=== PATIENT | female | born 1965 | race Caucasian/White ===

== ENCOUNTER 2021-04-01 15:47 | Outpatient (CLI) | payer BC, SELFPAY ==
[2021-04-01 16:02] LABS: Basophils Absolute Auto 0.05 K/mm3 (0.00-0.10); Basophils Percent Auto 0.8 % (0.0-1.0); Eosinophils Absolute Auto 0.06 K/mm3 (0.02-0.50); Eosinophils Percent Auto 0.9 % (1.0-6.0); Hematocrit 43.9 % (35.0-49.0); Hemoglobin 14.7 g/dL (12.0-15.0); Immature Granulocyte Absolute 0.01 K/mm3 (0.00-0.00); Immature Granulocyte Percent A 0.2 % (0.0-0.0); Lymphocytes Absolute Auto 1.89 K/mm3 (1.10-4.50); Lymphocytes Percent Auto 29.9 % (18.0-42.0); Mean Corpuscular HGB Conc 33.5 g/dL (32.0-36.0); Mean Corpuscular Hemoglobin 30.1 pg (27.0-31.0); Mean Corpuscular Volume 89.8 fL (78.0-102.0); Mean Platelet Volume 10.9 fl (9.2-11.8); Monocytes Absolute Auto 0.78 K/mm3 (0.10-0.90); Monocytes Percent Auto 12.3 % (2.0-11.0); Neutrophils Absolute Auto 3.5 K/mm3 (1.7-7.2); Neutrophils Percent Auto 55.9 % (50.0-70.0); Platelet Count Result 237 K/mm3 (150-420); Red Blood Count 4.89 M/mm3 (4.20-5.40); White Blood Count 6.3 K/mm3 (4.8-10.8)
[2021-04-01 16:16] LABS: D Dimer 0.29 mg/L (0.19-0.50)
[2021-04-01 16:22] LABS: Alanine Aminotransferase 51 U/L (14-59); Alkaline Phosphatase 111 U/L (46-116); Anion Gap 10 mmol/L (8-16); Aspartate Amino Transferase 21 U/L (15-37); Bilirubin,Total 0.4 mg/dL (0.00-1.00); Blood Urea Nitrogen 17 mg/dL (7-18); Calcium 9.7 mg/dL (8.5-10.1); Carbon Dioxide 33 mmol/L (21-32); Chloride 102 mmol/L (98-108); Estimated Glomerular Filt Rate > 60; Glucose 141 mg/dL (70-99); Osmolality Calculated 303 mOsm/kg (285-295); Potassium 3.7 mmol/L (3.5-5.1); Sodium 145 mmol/L (136-145); Total Protein 8.2 g/dL (6.4-8.2)
== END 2021-04-01 15:48 | disposition home or self-care (01) ==
LOC: CHSLAB 15:51
PROVIDERS: PCP Physician Assistant; Visit Provider Physician Assistant
DX: R06.00 Dyspnea, unspecified (principal)
CPT/HCPCS: 36415; 80053; 85025; 85380

== ENCOUNTER 2021-04-02 09:24 | Outpatient (CLI) | payer BC, SELFPAY ==
--- NOTE | ~2021-04-02 | XR_ITS ---
EXAMINATION: XR chest 2V DATE: 04/02/2021 09:39 INDICATION: Shortness of breath and chest pain TECHNIQUE: PA and lateral views of the chest are obtained. COMPARISON: 10/04/2018 FINDINGS: There are patchy opacities of the lung bases. There is no pleural effusion or pneumothorax. The cardiomediastinal silhouette is normal. There is moderate thoracic spondylosis. Surgical clips i n the right upper quadrant are likely from prior cholecystectomy. IMPRESSION: 1. Bibasilar airspace opacities, consistent with atelectasis versus pneumonia. Reviewed, dictated and finalized at location A. SLAGMAN
== END 2021-04-02 09:25 | disposition home or self-care (01) ==
LOC: CHSLAB 09:26
PROVIDERS: PCP Physician Assistant; Visit Provider Physician Assistant
DX: R06.00 Dyspnea, unspecified (principal)
CPT/HCPCS: 71046

== ENCOUNTER 2021-04-07 09:18 | Emergency (ER) | payer BC, SELFPAY ==
--- NOTE | ~2021-04-07 | XR_ITS ---
EXAMINATION: XR chest 1V portable 04/07/2021 10:00 INDICATION: Shortness of breath and chest pain PROCEDURE: AP portable chest COMPARISON: Comparison to multiple prior studies sequentially, with oldest reviewed study dated 06/01. FINDINGS: The lungs are clear. The cardiomediastinal silhouette is within normal limits. There are no pleural effusions. There is no pneumothorax suspected. IMPRESSION: 1: NO ACUTE CARDIOPULMONARY DISEASE. Reviewed, dictated and finalized at location A. WRITER
[2021-04-07 09:22] VITALS: BP 166/91; PULSE 95; RESP 18; TEMP 36.9; O2SAT 100
--- NOTE | 2021-04-07 09:45 | ECG_ITS ---
Measurements Intervals [place] Rate: 82 P: 6 LA: 134 QRS: 1 QRSD: 102 T: 31 QT: 372 QTc: 436 Interpretive Statements SINUS RHYTHM DELAYED PRECORDIAL R/S TRANSITION BASELINE ARTIFACT- I, II, III, AVR, AVF BORDERLINE ECG Electronically Signed On 04-07-2021 12:12:58 [employer]ONRY CONTRACTOR by Rad Echevarria D.O.
[2021-04-07 10:06] LABS: Alveolar/Arterial O2 Gradient 19.9 mmHg; Base Excess ABG 2.9 mEq/l (+/-2.0); Fractional Inspired Oxygen 21 %; HCO3 ABG 23.8 mEq/l (22.0-26.0); Oxygen Content ABG 20.6 %vol (16.0-22.0); Oxygen Saturation ABG 98.2 % (95.0-100.0); Oxyhemoglobin 96.5 % THb (90.0-100.0); PCO2 ABG 27.4 mmHg (35.0-45.0); PO2 FiO2 Ratio Arterial Blood 4.62 %; Total Hemoglobin 15.1 g/dL (12.0-18.0)
[2021-04-07 10:07] LABS: Device ROOM AIR; Modified Allen's Test Pass; Site Drawn LEFT RADIAL; pH ABG 7.557 (7.350-7.450)
[2021-04-07 10:18] LABS: Basophils Absolute Auto 0.1 K/mm3 (0.0-0.1); Basophils Percent Auto 0.6 % (0.2-1.2); Eosinophils Absolute Auto 0.2 K/mm3 (0-0.3); Eosinophils Percent Auto 1.8 % (0-4.4); Hematocrit 44.7 % (37.0-47.0); Hemoglobin 14.7 g/dL (12.0-15.0); Immature Granulocyte Absolute 0.04 K/mm3 (0.00-0.031); Immature Granulocyte Percent A 0.5 % (0-0.5); Lymphocytes Absolute Auto 3.43 K/mm3 (0.9-3.2); Lymphocytes Percent Auto 40.6 % (18.3-44.2); Mean Corpuscular HGB Conc 32.9 g/dl (32-36); Mean Corpuscular Hemoglobin 29.6 pg (26-34); Mean Corpuscular Volume 90.1 fl (80-100); Mean Platelet Volume 10.6 fl (7.4-10.4); Monocytes Absolute Auto 0.6 K/mm3 (0.1-0.6); Monocytes Percent Auto 7.2 % (2.6-8.5); Neutrophils Absolute Auto 4.2 K/mm3 (1.3-6.7); Neutrophils Percent Auto 49.3 % (45.5-73.1); Platelet Count Result 241 k/mm3 (150-375); Red Blood Count 4.96 M/mm3 (4.2-5.4); Red Cell Distribution Width 14.5 % (11.5-14.5); White Blood Count 8.5 K/mm3 (4.5-10.0)
--- NOTE | 2021-04-07 10:25 | ED.SOB ---
HPI - SOB/Dyspnea General Chief Complaint: Shortness of Breath/Dyspnea Stated Complaint: sob Time Seen by Provider: 04/07/21 09:44 Source: patient Mode of arrival: ambulatory Limitations: no limitations History of Present Illness HPI Narrative: Patient is 55 years old white female presented to the ED with central chest burning sensation, worse with coughing, shortness of breath, coughing for the last 7 days, was seen by her family physician 6 days ago, diagnosed of pneumonia, started on Z-Ariel, cephalexin, prednisone and inhaler, no improved. History of Covid infection February 18, 2020, patient is fully vaccinated for COVID-19. Patient also complaining of fever and chills. History of diabetes, hypertension, hyperlipidemia, hypothyroidism, no smoking, drinks occasionally. Related Data Allergies Allergy/AdvReac Type Severity Reaction Status Date / Time No Known Allergies Allergy Mild Unverified 01/08/08 02:41 Review of Systems Review of Systems: CONSTITUTIONAL: Denies fever, chills, or sweats. EYES: Denies visual changes, redness, or discharge. ENT: Denies rhinorrhea, congestion, sore throat, or otalgia. CARDIOVASCULAR: Denies chest pain, palpitations, or edema. RESPIRATORY: Denies cough or dyspnea. GASTROINTESTINAL: Denies abdominal pain, nausea, vomiting, or diarrhea. GENITOURINARY: Denies dysuria or hematuria. SKIN: Denies rash or itching. MUSCULOSKELETAL: Denies back pain, joint pain, or myalgia. NEUROLOGIC: Denies headache, numbness, or weakness. PSYCHIATRIC: Denies anxiety or depression. Exam Narrative: General appearance: Well-developed, well-nourished Skin: Normal color Head: Normocephalic, nontraumatic Eyes: Clear conjunctiva ENT: Oropharynx normal, ears normal, nose normal Neck: Supple, nontender Chest and respiratory: Airway patent, no respiratory distress, no accessory muscle use. Mild upper chest tenderness Heart: Regular rate/rhythm Abdomen: Soft, nontender, no organomegaly, quiet bowel sounds Vascular: Normal peripheral pulses, normal capillary refill. Musculoskeletal: Normal range of motion, nontender back Neurologic: Alert and oriented ?3, DIALYSIS TECH is normal as tested, no gross motor deficit Course Course Emergency Course: Stable Work-up did not show anything significant to explain patient condition. Hyperventilation syndrome is my concern secondary to long COVID. Patient will be discharged to follow-up with her family physician as needed, continue home medication, off work for 2 days Vital Signs Vital signs: Vital Signs Temperature 36.9 C 04/07/21 09:22 Pulse Rate 95 04/07/21 09:22 Respiratory Rate 18 04/07/21 09:22 Blood Pressure 166/91 H 04/07/21 09:22 Pulse Oximetry 100 04/07/21 09:22 Temperature 36.9 C 04/07/21 09:22 Pulse Rate 95 04/07/21 09:22 Respiratory Rate 18 04/07/21 09:22 Blood Pressure 166/91 H 04/07/21 09:22 Pulse Oximetry 100 04/07/21 09:22 MDM - SOB/Dyspnea Lab Data Result diagrams: 04/07/21 10:10 04/07/21 10:10 Labs: Lab Results 04/07/21 04/07/21 04/07/21 Range/Units 10:10 10:10 10:10 WBC 8.5 (4.5-10.0) K/mm3 RBC 4.96 (4.2-5.4) M/mm3 Hgb 14.7 (12.0-15.0) g/dL Hct 44.7 (37.0-47.0) % MCV 90.1 (80-100) fl MCH 29.6 (26-34) pg MCHC 32.9 (32-36) g/dl RDW 14.5 (11.5-14.5) % Plt Count 241 (150-375) k/mm3 MPV 10.6 H (7.4-10.4) fl Immature Gran % (Auto) 0.5 (0-0.5) % Neut % (Auto) 49.3 (45.5-73.1) % Lymph % (Auto) 40.6 (18.3-44.2) % [place] % (Auto) 7.2 (2.6-8.5) % Eos % (Auto) 1.8 (0-4.4) % Baso % (Auto) 0.6 (0.2-1.2) % Lymph # (Auto) 3.43 H (0.9-3.2) K/mm3 Mo
[2021-04-07 10:27] LABS: Lactic Acid Reflex 1.9 mmol/L (0.7-2.1); Prothrombin Time 12.9 Seconds (11.1-14.7)
[2021-04-07 10:28] LABS: Partial Thromboplastin Time 24.5 SECONDS (22.3-36.8)
[2021-04-07 10:31] LABS: Alanine Aminotransferase 57 U/L (4-35); Albumin Level 4.4 g/dL (3.5-5.1); Alkaline Phosphatase 113 U/L (38-126); Anion Gap 6 mmol/L (8-16); Aspartate Amino Transferase 37 U/L (14-36); Bilirubin,Total 0.7 mg/dL (0.2-1.3); Blood Urea Nitrogen 22 mg/dL (7-17); CRP < 0.5 mg/dL (<1.0); Calcium 8.9 mg/dL (8.4-10.2); Carbon Dioxide 32 mmol/L (22-30); Chloride 102 mmol/L (98-107); Estimated CRCL calculation 82 ml/min; Estimated Glomerular Filt Rate > 60; Glucose 86 mg/dL (65-110); Sodium 140 mmol/L (137-145)
[2021-04-07 10:38] LABS: Troponin I < 0.012 ng/mL (0.000-0.034)
[2021-04-07 11:11] LABS: D Dimer < 0.27 ug/mL (<0.48)
[2021-04-07 11:15] VITALS: BP 130/79; PULSE 82; RESP 12; O2SAT 97
[2021-04-07 11:57] VITALS: BP 134/84; PULSE 87; RESP 12; O2SAT 98
== END 2021-04-07 11:50 | disposition home or self-care (01) ==
PROVIDERS: Emergency Provider Emergency Medicine; PCP Physician Assistant
DX: F45.8 Other somatoform disorders (principal); U09.9 Post COVID-19 condition, unspecified; I10 Essential (primary) hypertension; E78.5 Hyperlipidemia, unspecified; E03.9 Hypothyroidism, unspecified; E11.9 Type 2 diabetes mellitus without complications; R94.31 Abnormal electrocardiogram [ECG] [EKG]
CPT/HCPCS: 36415; 36600; 71045; 80053; 82805; 83605; 84484; 85025; 85380; 85610; 85730; 86140; 87040; 93005; 99284

== ENCOUNTER 2023-01-26 00:56 | Day surgery (SDC) | payer BC, SELFPAY ==
[2023-01-08 10:12] VITALS: BMI 38.7
--- NOTE | 2023-01-22 10:18 | SUR.PREOP ---
Patient called regarding upcoming procedure. Message left on pt's voicemail regarding appointment times.
[2023-01-26 07:56] VITALS: BP 150/79; PULSE 76; RESP 18; TEMP 36.1; O2SAT 99
[2023-01-26] MEDS: LACTATED RINGERS 1,000 ML 150 ML IV CONT (08:06)
[2023-01-26 08:09] LABS: Glucose Point of Care 94 mg/dl (65-105)
--- NOTE | 2023-01-26 08:31 | P.PNAN_ITS ---
Anes - Initial Pre Proc Eval Procedure: Operation Date: 01/26/23 09:00 Proposed Procedures p Screening Colonoscopy - Kye Calvillo MD Date/Time: 01/26/23 08:31 Surgeon: Kye Calvillo MD Pre Op Diagnosis: neoplasm screening Patient Data Age: 57 Gender: F Height: 1.57 m Weight: 97.1 kg Last Vital Signs Temp 36.1 C L 01/26/23 07:56 Pulse 76 01/26/23 07:56 Resp 18 01/26/23 07:56 BP 150/79 H 01/26/23 07:56 Pulse Ox 99 01/26/23 07:56 O2 Del Method Room Air 01/26/23 07:56 Allergies Allergy/AdvReac Type Severity Reaction Status Date / Time No Known Allergies Allergy Mild Verified 01/26/23 07:54 Home Medications Medication Instructions Recorded Confirmed Type atorvastatin 40 mg tablet 40 mg PO DAILY 01/08/23 01/08/23 History dulaglutide 3 mg/0.5 mL 3 mg subcut WEEKLY 01/08/23 01/26/23 History subcutaneous pen injector (Trulicity) hydrochlorothiazide 25 mg tablet 25 mg PO DAILY 01/08/23 01/08/23 History ibuprofen 600 mg tablet 600 mg PO BID 01/08/23 01/08/23 History lansoprazole 15 mg capsule,delayed 15 mg PO DAILY 01/08/23 01/08/23 History release levothyroxine 125 mcg tablet 125 mcg PO DAILY 01/08/23 01/08/23 History liothyronine 5 mcg tablet 5 mcg PO DAILY 01/08/23 01/08/23 History metformin 500 mg tablet,extended 500 mg PO HS 01/08/23 01/08/23 History release 24 hr ramipril 10 mg capsule 10 mg PO DAILY 01/08/23 01/08/23 History valacyclovir 1 gram tablet 1 mg PO PRN PRN Cold Sores 01/08/23 01/08/23 History Laboratory Tests 01/26/23 08:00 POC Capillary Glucose 94 mg/dl (65-105) Patient hx anesthesia problems: none Family hx anesthesia problems: none Results Review: All pre-operative results and documents have been reviewed as part of the pre- operative evaluation. [facility] Past Medical History Medical History (Updated 01/26/23 @ 08:32 by Berto Molina MD) Diabetes HTN (hypertension) Obesity Surgical History Surgical History (Updated 01/26/23 @ 08:32 by Berto Molina MD) H/O: hysterectomy History of lumbar surgery Social History Social History Smoking status: Never smoker Alcohol intake: current Alcohol use details: rare use Substance use: never Substance use type: does not use Living arrangements: with family Spiritual care concerns: No Anes - Eval Final PreProcedure Day of Procedure 01/26/23 08:31 Patient weight: obese Heart: regular rate and rhythm Lungs: clear to auscultation Airway: Mallampati scale class II Neurological: alert and oriented Last oral intake: >/= 8 hours ASA classification: III Emergent: no Anesthetic plan: proceed Anesthesia type and monitoring: general GIVS and standard monitoring Results Review: All pre-operative results and documents have been reviewed as part of the pre- operative evaluation. Informed Consent: The patient's anesthetic plan and its attendant risks and benefits were discussed with the patient/family/POA. Questions were solicited and answers provided to the satisfaction of the patient/family/POA.
--- NOTE | 2023-01-26 08:43 | PM.HPGS ---
History of Present Illness History of Present Illness Consent: Risks, benefits, and alternatives have been discussed and questions answered. Patient agrees to proceed with procedure. Chief complaint: Family history of colon cancer Narrative: Anitha Garcia is a 57 year old female presents for colonoscopy. Patient reports that her mother had colon cancer. Patient reports that in general her bowel habits have been normal. She reports 3 weeks ago began to have mucousy stools. She did end up having bright red blood per rectum for several days. She was given a treatment of Flagyl for 5 days and noticed improvement. Bowel movements recently have returned to normal. Patient denies any ongoing abdominal pain. Her family history is today significant her mother had colon cancer. Previous colonoscopy many years ago was normal in 2008. Review of Systems Review of Systems: Review of systems noncontributory. [facility] Past Medical History Medical History (Updated 01/26/23 @ 08:44 by Kye Calvillo MD) Diabetes HTN (hypertension) Obesity Surgical History Surgical History (Updated 01/26/23 @ 08:32 by Berto Molina MD) H/O: hysterectomy History of lumbar surgery Social History Social History Smoking status: Never smoker Alcohol intake: current Alcohol use details: rare use Substance use: never Substance use type: does not use Living arrangements: with family Spiritual care concerns: No Meds Home Medications and Allergies Home Medications Medication Instructions Recorded Confirmed Type atorvastatin 40 mg tablet 40 mg PO DAILY 01/08/23 01/08/23 History dulaglutide 3 mg/0.5 mL 3 mg subcut WEEKLY 01/08/23 01/26/23 History subcutaneous pen injector (Trulicity) hydrochlorothiazide 25 mg tablet 25 mg PO DAILY 01/08/23 01/08/23 History ibuprofen 600 mg tablet 600 mg PO BID 01/08/23 01/08/23 History lansoprazole 15 mg capsule,delayed 15 mg PO DAILY 01/08/23 01/08/23 History release levothyroxine 125 mcg tablet 125 mcg PO DAILY 01/08/23 01/08/23 History liothyronine 5 mcg tablet 5 mcg PO DAILY 01/08/23 01/08/23 History metformin 500 mg tablet,extended 500 mg PO HS 01/08/23 01/08/23 History release 24 hr ramipril 10 mg capsule 10 mg PO DAILY 01/08/23 01/08/23 History valacyclovir 1 gram tablet 1 mg PO PRN PRN Cold Sores 01/08/23 01/08/23 History Allergies Allergy/AdvReac Type Severity Reaction Status Date / Time No Known Allergies Allergy Mild Verified 01/26/23 07:54 Vital Signs Vital Signs - 24 hr 01/26/23 07:56 Temperature 97 F L Pulse Rate 76 Respiratory Rate 18 Blood Pressure 150/79 H Pulse Oximetry 99 Oxygen Delivery Room Air Exam Narrative: Physical exam reveals patient to be alert. Vital signs stable. HEENT exam is unremarkable. Patient is anicteric. Lungs are clear to auscultation and percussion. Heart is without murmur or extra sounds. Abdomen bowel sounds are present soft nontender with no organomegaly. Digital external rectal exam is normal. Assessment and Plan Assessment and plan (1) Encounter for screening colonoscopy: Code(s): Z12.11 - Encounter for screening for malignant neoplasm of colon Status: Acute Assessment and Plan: Screening colonoscopy advised this time. Her symptoms suggest she may have recently had a bout of colitis. This will be evaluated at time of endoscopy. (2) Family history of colon cancer in mother: Code(s): Z80.0 - Family history of malignant neoplasm of digestive organs Status: Acute Assessment and Plan: Patient's mother's report have colon cancer. Would suggest follow-up colonoscopy at 5 year intervals.
[2023-01-26 09:48] VITALS: BP 121/74; PULSE 76; RESP 17; O2SAT 96
[2023-01-26 09:58] VITALS: BP 119/74; PULSE 76; RESP 16; O2SAT 96
[2023-01-26 10:08] VITALS: BP 112/68; PULSE 74; RESP 14; O2SAT 96
== END 2023-01-26 10:15 | disposition home or self-care (01) ==
PROVIDERS: PCP Physician Assistant; Visit Provider Internal Medicine Gastroenterology
PROC: 0DJD8ZZ Inspection of Lower Intestinal Tract, Via Natural or Artificial Opening Endoscopic (ICD-10-PCS; CPT 45378; principal; 2023-01-26 09:00)
DX: Z12.11 Encounter for screening for malignant neoplasm of colon (principal); K64.8 Other hemorrhoids; E11.9 Type 2 diabetes mellitus without complications; I10 Essential (primary) hypertension; F10.90 Alcohol use, unspecified, uncomplicated; B00.9 Herpesviral infection, unspecified; Z79.85 Long-term (current) use of injectable non-insulin antidiabetic drugs; Z79.1 Long term (current) use of non-steroidal anti-inflammatories (NSAID); Z79.84 Long term (current) use of oral hypoglycemic drugs; Z79.899 Other long term (current) drug therapy; Z80.0 Family history of malignant neoplasm of digestive organs
CPT/HCPCS: 45378; 82948; J2704; J7120

== ENCOUNTER 2023-04-01 12:06 | Emergency (ER) | payer BC, SELFPAY ==
--- NOTE | ~2023-04-01 | CT_ITS ---
EXAMINATION: CT abdomen pelvis w con INDICATION: Left flank and back pain TECHNIQUE: Computed tomographic images of the abdomen and pelvis were obtained after the administrati on of 100 cc of Omnipaque 350 intravenous contrast. The dose-length product (DLP) was 1261.63 mGy-cm. Automated exposure control and iterative reconstruction technique were employed. COMPARISON: 01/08/2008 FINDINGS: Minimal dependent atelectasis is present in the lung bases. The heart size is normal. Moody es of cholecystectomy are noted. The liver, spleen, pancreas, and adrenal glands are normal. The kidn eys are unremarkable. No pathologically enlarged abdominal or pelvic lymph nodes are identified. No f ree intraperitoneal gas or evidence of bowel obstruction. There are multiple phleboliths of the pelvi s. A moderate volume of colonic stool is present. There is severe lumbar spondylosis. IMPRESSION: 1. No CT correlate for the patient's symptoms. Reviewed, dictated and finalized at location L. [facility]
[2023-04-01 12:09] VITALS: BP 110/64; PULSE 85; RESP 20; TEMP 35.7; O2SAT 99
--- NOTE | 2023-04-01 12:38 | ED.FEMALEGU ---
HPI - Female Genitourinary General Chief complaint: Urogenital-Female Stated complaint: left flank pain Time Seen by Provider: 04/01/23 12:32 Source: patient Mode of arrival: ambulatory Limitations: no limitations History of Present Illness HPI Narrative: 57 years old white female came to the emergency room by private has been complaining of left flank pain for the last 1 and half week, intermittent denies aggravating or relieving. Today started having nausea. She denies any fever or chills. Patient reports unable to hold her urine lately. Related Data Home Medications Medication Instructions Recorded Confirmed atorvastatin 40 mg tablet 40 mg PO DAILY 01/08/23 01/08/23 dulaglutide 3 mg/0.5 mL 3 mg subcut WEEKLY 01/08/23 01/26/23 subcutaneous pen injector ([facility]) hydrochlorothiazide 25 mg tablet 25 mg PO DAILY 01/08/23 01/08/23 ibuprofen 600 mg tablet 600 mg PO BID 01/08/23 01/08/23 lansoprazole 15 mg capsule,delayed 15 mg PO DAILY 01/08/23 01/08/23 release levothyroxine 125 mcg tablet 125 mcg PO DAILY 01/08/23 01/08/23 liothyronine 5 mcg tablet 5 mcg PO DAILY 01/08/23 01/08/23 metformin 500 mg tablet,extended 500 mg PO HS 01/08/23 01/08/23 release 24 hr ramipril 10 mg capsule 10 mg PO DAILY 01/08/23 01/08/23 valacyclovir 1 gram tablet 1 mg PO PRN PRN Cold Sores 01/08/23 01/08/23 Allergies Allergy/AdvReac Type Severity Reaction Status Date / Time sulfamethoxazole Allergy Hives Verified 04/01/23 12:12 [From ] trimethoprim [From ] Allergy Hives Verified 04/01/23 12:12 Review of Systems Review of Systems: All systems reviewed & are unremarkable except as noted in HPI and below PMFSH Past Medical History Medical History Diabetes HTN (hypertension) Obesity Surgical History Surgical History H/O: hysterectomy History of lumbar surgery Social History Social History Smoking status: Never smoker Alcohol intake: current Alcohol use details: rare use Substance use: never Substance use type: does not use Living arrangements: with family Spiritual care concerns: No Exam Narrative: General appearance: Well-developed, well-nourished Skin: Normal color Head: Normocephalic, nontraumatic Eyes: Clear conjunctiva ENT: Oropharynx normal, ears normal, nose normal Neck: Supple, nontender Chest and respiratory: Airway patent, no respiratory distress, no accessory muscle use Heart: Regular rate/rhythm Abdomen: Soft, left flank tenderness , no organomegaly, quiet bowel sounds, left flank area showed no bruises, no swelling, no rash Vascular: Normal peripheral pulses, normal capillary refill. Musculoskeletal: Normal range of motion, nontender back Neurologic: Alert and oriented ?3, DOSIER OPERATOR is normal as tested, no gross motor deficit Course Vital Signs Vital signs: Vital Signs Temperature 35.7 C L 04/01/23 12:09 Pulse Rate 85 04/01/23 12:09 Respiratory Rate 20 04/01/23 12:09 Blood Pressure 110/64 04/01/23 12:09 Pulse Oximetry 99 04/01/23 12:09 Oxygen Delivery Room Air 04/01/23 12:09 Temperature 35.7 C L 04/01/23 12:09 Pulse Rate 85 04/01/23 12:09 Respiratory Rate 20 04/01/23 12:09 Blood Pressure 110/64 04/01/23 12:09 Pulse Oximetry 99 04/01/23 12:09 Oxygen Delivery Room Air 04/01/23 12:09 MDM - Female Genitourinary MDM Narrative Medical decision making narrative: Patient presents with left flank pain for the last 1 and half week, on exam slight tenderness, no bruises or rash Differe
[2023-04-01 12:58] LABS: Basophils Absolute Auto 0.1 K/mm3 (0.0-0.1); Basophils Percent Auto 1.1 % (0.2-1.2); Eosinophils Absolute Auto 0.2 K/mm3 (0-0.3); Eosinophils Percent Auto 2.1 % (0-4.4); Hematocrit 44.1 % (37.0-47.0); Hemoglobin 14.5 g/dL (12.0-15.0); Immature Granulocyte Absolute 0.02 K/mm3 (0.00-0.031); Immature Granulocyte Percent A 0.2 % (0-0.5); Lymphocytes Absolute Auto 4.08 K/mm3 (0.9-3.2); Lymphocytes Percent Auto 48.6 % (18.3-44.2); Mean Corpuscular HGB Conc 32.9 g/dl (32-36); Mean Corpuscular Hemoglobin 29.7 pg (26-34); Mean Corpuscular Volume 90.2 fl (80-100); Mean Platelet Volume 11.1 fl (7.4-10.4); Monocytes Absolute Auto 0.8 K/mm3 (0.1-0.6); Monocytes Percent Auto 9.7 % (2.6-8.5); Neutrophils Absolute Auto 3.2 K/mm3 (1.3-6.7); Neutrophils Percent Auto 38.3 % (45.5-73.1); Platelet Count Result 255 k/mm3 (150-375); Red Blood Count 4.89 M/mm3 (4.2-5.4); Red Cell Distribution Width 13.5 % (11.5-14.5); White Blood Count 8.4 K/mm3 (4.5-10.0)
[2023-04-01] MEDS: ONDANSETRON INJ 4 MG/2 ML VIAL IV PUSH (12:59)
[2023-04-01] MEDS: SODIUM CHLORIDE 0.9% IV 1,000 ML 999 ML IV CONT (12:59)
[2023-04-01] MEDS: HYDROmorphone HCL INJ (*CRX) 1 MG/ML SYR 0.5 MG IV PUSH (12:59)
[2023-04-01 13:01] VITALS: BP 109/62; PULSE 88; RESP 16; TEMP 36.7; O2SAT 98
[2023-04-01 13:04] LABS: Alanine Aminotransferase 39 U/L (6-35); Albumin Level 4.9 g/dL (3.5-5.1); Alkaline Phosphatase 106 U/L (38-126); Anion Gap 12 mmol/L (8-16); Aspartate Amino Transferase 42 U/L (14-36); Bilirubin,Total 1.1 mg/dL (0.2-1.3); Blood Urea Nitrogen 21 mg/dL (7-17); Calcium 10.4 mg/dL (8.4-10.2); Carbon Dioxide 26 mmol/L (22-30); Chloride 100 mmol/L (98-107); Estimated CRCL calculation 99 ml/min; Estimated Glomerular Filt Rate > 60; Glucose 86 mg/dL (65-110); Sodium 138 mmol/L (137-145)
[2023-04-01 13:15] LABS: Appearance Urine Clear (Clear); Bacteria Urine None Seen /hpf; Bilirubin Urine Negative (Negative); Blood Urine Negative (Negative); Color Urine Yellow (Yellow); Glucose Urine UA Negative (Negative); Ketones Urine Negative (Negative); Leukocyte Esterase Ur 1+ LEU/UL (Negative); Need Manual Microscopic Reviewed; Nitrate Urine Negative (Negative); Non Pathogenic Casts 0-2; Protein Urine Negative (Negative); RBC Urine 0-2 /hpf (0-2); Specific Grav Ur 1.009 (1.001-1.035); Squamous Epithelial Cell Urine Occasional /hpf (Few); WBC Urine 0-5 /hpf; pH Urine 6.5 (5.0-9.0)
[2023-04-01 13:17] LABS: Add Urine Microscopic? YES
[2023-04-01 13:31] VITALS: BP 106/95; PULSE 90; RESP 16; O2SAT 98
[2023-04-01 13:46] VITALS: BP 104/78; PULSE 86; RESP 16; TEMP 36.6; O2SAT 99
[2023-04-01 14:30] VITALS: BP 106/68; PULSE 88; RESP 16; TEMP 36.7; O2SAT 92
[2023-04-01 15:25] VITALS: BP 110/60; PULSE 90; RESP 16; TEMP 36.7; O2SAT 100
== END 2023-04-01 15:27 | disposition home or self-care (01) ==
PROVIDERS: Emergency Provider Emergency Medicine; PCP Physician Assistant
DX: R10.9 Unspecified abdominal pain (principal); E11.9 Type 2 diabetes mellitus without complications; I10 Essential (primary) hypertension; E66.9 Obesity, unspecified; Z68.38 Body mass index [BMI] 38.0-38.9, adult; Z90.710 Acquired absence of both cervix and uterus; Z79.85 Long-term (current) use of injectable non-insulin antidiabetic drugs; Z79.84 Long term (current) use of oral hypoglycemic drugs
CPT/HCPCS: 36415; 74177; 80053; 81001; 85025; 96361; 96374; 96375; 99284; J1170; J2405; J7030; Q9967

== ENCOUNTER 2024-04-10 17:29 | Outpatient (CLI) | payer BC, SELFPAY | END 2024-04-10 17:30 | disposition home or self-care (01) | LOC: CHSIMG 17:33 | PROVIDERS: PCP Physician Assistant; Visit Provider Physician Assistant | DX: M54.6 Pain in thoracic spine (principal) | CPT/HCPCS: 71046 ==